=== PATIENT | male | born 2000 | race African-American/Black ===

== ENCOUNTER 2019-03-11 08:12 | Emergency (ER) | payer OTHER ==
[~2019-03-11] VITALS: Ht 185.4 cm; Wt 83.9 kg
[2019-03-11 11:46] LABS: HEMATOCRIT 45.9 % (42.0-52.0); HEMOGLOBIN 15.1 gm/dL (14.0-18.0); MCH 28.3 pg (26.0-34.0); MCV 85.7 fL (80.0-100.0); PLATELET COUNT 156 thou/uL (150-400); RBC 5.35 mil/uL (4.50-6.00); RDW 13.8 % (10.5-14.5); WBC 8.5 thou/uL (4.0-11.0)
[2019-03-11 11:52] LABS: ANION GAP 9 mmol/L (7-16); BUN 6 mg/dL (7-18); CALCIUM 8.8 mg/dL (8.5-10.1); CHLORIDE 100 mmol/L (98-107); CO2 24 mmol/L (21-32); CREATININE 1.4 mg/dL (0.7-1.3); GLUCOSE 101 mg/dL (74-106); POTASSIUM 3.6 mmol/L (3.5-5.1); SODIUM 133 mmol/L (136-145)
[2019-03-11 11:56] LABS: MAGNESIUM 1.9 mg/dL (1.8-2.4)
[2019-03-11 12:23] LABS: ABSOLUTE NEUTROPHILS 3.2 thou/uL (1.4-8.2); PLATELET ESTIMATE NORMAL
[2019-03-11 12:25] LABS: TROPONIN-I <0.06 ng/mL (<0.06)
[2019-03-11 13:45] VITALS: BP 125/74
--- NOTE | 2019-03-12 07:57 | EKG ---
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 : 2000 Requested By: Eddie Short Order Number: [id number] MD: Urbnao Portillo Measurements Intervals Eure Rate: 65 P: 42 FL: 143 QRS: 50 QRSD: 83 T: -59 QT: 391 QTc: 407 Interpretive Statements Sinus rhythm Atrial premature complex RSR' in V1 or V2, right VCD or RVH Nonspecific T abnormalities, inferior leads No previous ECG available for comparison Electronically Signed On 03-12-2019 7:56:56 FOOD STYLIST by Urbano Portillo [email or web address] <ELECTRONICALLY SIGNED> By: Urbano Portillo MD 03/12/19 [id number] 114 Urbano Portillo MD /DONOVAN
== END 2019-03-11 13:46 | disposition home or self-care (01) ==
LOC: ER 08:12
PROVIDERS: Emergency Medicine
DX: B34.9 Viral infection, unspecified (principal); R55 Syncope and collapse; J45.909 Unspecified asthma, uncomplicated; F17.210 Nicotine dependence, cigarettes, uncomplicated